=== PATIENT | male | born 1970 | race Caucasian/White ===

== ENCOUNTER 2017-07-25 15:12 | Emergency (ER) | payer OTHER ==
[~2017-07-25] VITALS: Ht 177.8 cm; Wt 106.6 kg
--- NOTE | ~2017-07-25 | EKG ---
[place] [address] [employer] [facility] [place] [address] ELECTROCARDIOGRAM REPORT Name: ESME MONZON [id number] Admission: 07/25/17 Attend Phys: Discharge: 07/25/17 Date of : 66 Report #: [id number] THIS REPORT FOR: //name// [facility] ED Test Date: 2017-07-25 Test Time: 15:20:46 Pat Name: ESME MONZON Department: Room: Gender: M [employer] Specialist: CELIOJUDIE : 1970 Requested By: Godfrey Smyth Order Number: [id number] MD: Go Caceres Measurements Intervals [place] Rate: 86 P: 55 WI: 133 QRS: 48 QRSD: 98 T: 32 QT: 362 QTc: 433 Interpretive Statements Sinus rhythm Probable left atrial enlargement Compared to ECG 10/12/2001 04:43:06 No significant changes Electronically Signed On 07-25-2017 22:55:43 CDT by Go Caceres [email or web address] <ELECTRONICALLY SIGNED> By: Go Caceres MD 07/25/17 2255 1520 1520 Go Caceres MD /LAUREL
[~2017-07-25 15:12] MED LIST: ALPRAZOLAM; FLEXERIL PO; IBUPROFEN 800800 M1 PO; NORCO 5-325 TA1 EACH PO; ZPAK
[2017-07-25] MEDS ORDERED: CHOLESTEROL MED (15:26)
[2017-07-25 15:40] LABS: ABSOLUTE NEUTROPHILS 9.2 thou/uL (1.4-8.2); BASOPHILS 0.7 % (0.0-2.0); HEMATOCRIT 40.6 % (42.0-52.0); HEMOGLOBIN 13.8 gm/dL (14.0-18.0); LYMPHOCYTES 13.6 % (24.0-44.0); MCH 32.3 pg (26.0-34.0); MCV 94.9 fL (80.0-100.0); MONOCYTES 7.7 % (1.0-8.0); PLATELET COUNT 334 thou/uL (150-400); RBC 4.28 mil/uL (4.50-6.00); RDW 13.2 % (10.5-14.5); WBC 11.8 thou/uL (4.0-11.0)
[2017-07-25 15:46] LABS: ANION GAP 6 mmol/L (7-16); BUN 11 mg/dL (7-18); CHLORIDE 103 mmol/L (98-107); CO2 28 mmol/L (21-32); CREATININE 1.2 mg/dL (0.7-1.3); GLUCOSE 120 mg/dL (74-106); POTASSIUM 3.9 mmol/L (3.5-5.1); SODIUM 137 mmol/L (136-145)
[2017-07-25 15:55] LABS: TROPONIN-I < 0.04 ng/mL (<0.06)
[2017-07-25 17:28] VITALS: BP 148/88
== END 2017-07-25 17:29 | disposition home or self-care (01) ==
LOC: ER 15:12
PROVIDERS: Emergency Medicine
DX: R09.1 Pleurisy (principal); R07.89 Other chest pain; E78.00 Pure hypercholesterolemia, unspecified